=== PATIENT | female | born 1940 | race Asian ===

== ENCOUNTER → 2017-06-13 | Outpatient (CLI) | payer OTHER ==
[~2017-06-13] MED LIST: ASPI81 PO; DIPH1TAB24 PO; LEVO5TAB13 PO; LOSA100T29 PO; METF500T4 PO; PREG100C PO; ROPI0.5T5 PO
== END | disposition home or self-care (01) ==
LOC: RADPV 12:56
PROVIDERS: ATTEND Internal Medicine
DX: R07.9 Chest pain, unspecified (principal); I70.0 Atherosclerosis of aorta
CPT/HCPCS: 71101

== ENCOUNTER 2020-11-27 03:05 | Emergency (ER) | payer MEDICARE, MEDICAID ==
[~2020-11-27] VITALS: Ht 157.5 cm; Wt 65.9 kg
[~2020-11-27 03:05] MED LIST changes: +ASPI-1450 PO; -ASPI81 PO; -LOSA100T29 PO; +LOSA100T58 PO; +METF-444 PO; -METF500T4 PO; -ROPI0.5T5 PO; +ROPI0.5T7 PO
[2020-11-27] MEDS ORDERED: ACAR50TA2 PO (03:48)
[2020-11-27] MEDS ORDERED: ALLO100T2 PO (03:48)
[2020-11-27] MEDS ORDERED: DONE5TAB5 PO (03:48)
[2020-11-27] MEDS ORDERED: PIOG15TA6 PO (03:48)
[2020-11-27] MEDS ORDERED: FAMO20 PO (03:48)
[2020-11-27] MEDS ORDERED: ROSU20TA73 PO (03:48)
[2020-11-27] MEDS ORDERED: ONDANSETRON HCL 4 MG/2 ML VIAL IVP ONE (04:00)
[2020-11-27] MEDS ORDERED: MORPHINE SULFATE 2 MG/ML SYRINGE IVP ONE (04:00)
[2020-11-27 04:32] LABS: BASOPHILS % (AUTO) 0.2 % (0.0-2.0); EOSINOPHILS % (AUTO) 0.3 % (1.0-6.0); HEMOGLOBIN 11.1 g/dL (12.0-16.0); LYMPHOCYTES # (AUTO) 1.1 K/uL (1.0-4.8); LYMPHOCYTES % (AUTO) 9.8 % (22.0-44.0); MEAN CORPUSCULAR HGB CONC 32.6 G/dL (31.0-37.0); MEAN CORPUSCULAR VOLUME 98 fL (80-100); MONOCYTES # (AUTO) 0.6 K/uL (0.1-1.0); MONOCYTES % (AUTO) 5.1 % (2.0-9.0); NEUTROPHILS # (AUTO) 9.7 K/uL (1.8-7.7); NEUTROPHILS % (AUTO) 84.6 % (40.0-70.0); PLATELET COUNT (AUTO) 164 K/uL (150-450); RED BLOOD CELL COUNT(AUTO) 3.47 MIL/uL (4.00-5.20)
[2020-11-27 04:43] LABS: APPEARANCE,URINE CLEAR (CLEAR); BILIRUBIN,URINE NEGATIVE (NEGATIVE); GLUCOSE, URINE (UA) NEGATIVE (NEGATIVE); KETONES,URINE NEGATIVE (NEGATIVE); LEUKOCYTE ESTERASE ,URINE NEGATIVE (NEGATIVE); NITRATE,URINE NEGATIVE (NEGATIVE); OCCULT BLOOD,URINE NEGATIVE (NEGATIVE); PROTEIN,URINE NEGATIVE (NEGATIVE); UROBILINOGEN,URINE 0.2 mg/dL (<=1.0)
[2020-11-27 04:56] LABS: ALBUMIN 3.4 g/dL (3.4-5.0); BILIRUBIN,TOTAL 0.4 mg/dL (0.1-1.0); CALCIUM, TOTAL 8.4 mg/dL (8.8-10.5); CREATININE 2.1 mg/dL (0.60-1.30); TOTAL PROTEIN, SERUM 7.2 g/dL (6.4-8.2)
[2020-11-27 04:58] LABS: POTASSIUM 2.7 mmol/L (3.5-5.1)
[2020-11-27] MEDS ORDERED: MetroNIDAZOLE 500 MG/NACL 100 ML IV ONE (07:00)
[2020-11-27] MEDS ORDERED: CIPROFLOXACIN 400 MG/D5% WATER 200 ML IV ONE (07:00)
[2020-11-27] MEDS ORDERED: POTASSIUM CHLORIDE 20 MEQ ER TABLET PO ONE (07:30)
[2020-11-27 08:06] LABS: COVID AG,FIA SOURCE NASOPHARYNGEAL
[2020-11-27 09:30] VITALS: BP 135/62
== END 2020-11-27 10:40 | disposition short-term general hospital (02) ==
LOC: EMS 03:08
DX: K52.9 Noninfective gastroenteritis and colitis, unspecified (principal); E87.6 Hypokalemia; R94.4 Abnormal results of kidney function studies; I12.9 Hypertensive chronic kidney disease with stage 1 through stage 4 chronic kidney disease, or unspecified chronic kidney disease; E11.22 Type 2 diabetes mellitus with diabetic chronic kidney disease; N18.9 Chronic kidney disease, unspecified; E78.00 Pure hypercholesterolemia, unspecified; Z20.822 Contact with and (suspected) exposure to COVID-19; Z90.89 Acquired absence of other organs; Z79.84 Long term (current) use of oral hypoglycemic drugs
CPT/HCPCS: 36415; 74176; 80053; 81003; 83690; 83735; 85025; 87426; 96365; 96368; 96375; 99285; J0744; J2270; J2405; J3490